=== PATIENT | female | born 1995 | race Caucasian/White ===

== ENCOUNTER 2017-07-23 17:33 | Emergency (ER) | payer MEDICAID ==
[~2017-07-23] VITALS: Ht 152.4 cm; Wt 53.7 kg
[2017-07-23 17:34] VITALS: BP 115/75
[2017-07-23] MEDS ORDERED: METHOCARBAMOL 750 MG TABLET ONE (18:20)
[2017-07-23] MEDS ORDERED: KETOROLAC 30 MG/1 ML ONE (18:20)
[2017-07-23] MEDS ORDERED: METHOCARBAMOL 750 MG TABLET PO ONE (18:30)
[2017-07-23] MEDS ORDERED: KETOROLAC 30 MG/1 ML IM ONE (18:30)
== END 2017-07-23 18:46 | disposition home or self-care (01) ==
LOC: ED 18:40
DX: M54.41 Lumbago with sciatica, right side (principal); M46.1 Sacroiliitis, not elsewhere classified
CPT/HCPCS: 96372; 99283; J1885